=== PATIENT | male | born 1995 | race Caucasian/White ===

== ENCOUNTER 2019-10-27 18:30 | Day surgery (SDC) | payer BC ==
[2019-10-27 13:42] LABS: #Eosinphils 0.1 thou/uL (0.0-0.7); #Lymphocytes 1.9 thou/uL (1.20-3.40); #Monocytes 0.7 thou/uL (0.11-0.59); #Neutrophils 4.3 thou/uL (1.40-6.50); %Basophils 0.5 % (0.0-1.0); %Eosinophils 1.3 % (0.0-10.0); %Lymphocytes 27.1 % (21.0-51.0); %Monocytes 10.6 % (0.0-10.0); %Neutrophils 60.6 % (42.0-75.0); Hemoglobin 14.8 g/dL (14.0-18.0); Mean Corpuscular HGB CONC 33.7 g/dL (32.0-36.0); Mean Corpuscular Hemoglobin 31.4 pg (27.0-31.0); Mean Corpuscular Volume 93.1 fL (78.0-98.0); Mean Platelet Volume 6.4 fL (7.4-10.4); Platelet Count 299 thou/uL (130-400); RBC Distribution Width 11.3 % (11.5-14.5); Red Blood Cell (RBC) Count 4.72 mill/uL (4.70-6.10)
--- NOTE | 2019-10-27 13:49 | RAD ---
XR Chest 1 View Portable HISTORY: Preoperative evaluation COMPARISON: None FINDINGS: The heart size is normal. The lungs are well expanded without focal areas of consolidation, pneumothorax or pleural effusions. IMPRESSION: No radiographic evidence of acute cardiopulmonary process.
[2019-10-27 14:09] LABS: ALT (SGPT) 33 U/L (8-55); AST (SGOT) 21 U/L (5-34); Albumin 4.3 g/dL (3.5-5.0); Alkaline Phosphatase 54 U/L (40-110); Anion Gap 12 mmol/L (10-20); BUN (Urea Nitrogen) 15 mg/dL (8.9-20.6); Calc. Creatinine Clearance 0 mL/min (70-130); Calcium 9.3 mg/dL (7.8-10.44); Carbon Dioxide 27 mmol/L (22-29); Chloride 106 mmol/L (98-107); Estimated GFR-MDRD 87; Glucose 92 mg/dL (70-105); Potassium 3.8 mmol/L (3.5-5.1); Protein, Total 7.3 g/dL (6.0-8.3); Sodium 141 mmol/L (136-145)
[~2019-10-27 18:30] MED LIST: Bacitracin 1 PK ONE; Bupivacaine 0.5% 10 ML VIAL ONE; CEFAZOLIN 1 GM VIAL ONE; Dexamethasone 20 MG/5 ML VIAL ONE; Ketorolac Tromethamine 30 MG/ML VIAL ONE; Lidocaine 1% (PF) 30 ML VIAL ONE; Lidocaine 1% PF 5 ML VIAL ONE; Ondansetron PF 4 MG/2 ML Vial ONE; PROPOFOL 200 MG/20 ML VIAL ONE
[2019-10-27] MEDS ORDERED: Morphine Sulfate 2 MG/ML SYRINGE SLOW IVP PRN (21:56)
[2019-10-27] MEDS ORDERED: Promethazine HCl 25 MG/ML VIAL IM PRN (21:56)
[2019-10-27] MEDS ORDERED: Meperidine HCl/PF 25 MG/ML VIAL SLOW IVP PRN (21:56)
[2019-10-27] MEDS ORDERED: PACU-Morphine 4MG/ML VIAL SLOW IVP PRN (21:56)
[2019-10-27] MEDS ORDERED: HYDROmorphone 2 MG/ML VIAL SLOW IVP PRN (21:56)
[2019-10-27] MEDS ORDERED: Promethazine HCl 25 MG/ML VIAL SLOW IVP PRN (21:56)
[2019-10-27] MEDS ORDERED: Ondansetron HCl/PF 4 MG/2 ML Vial IVP PRN (21:56)
--- NOTE | 2019-10-28 04:33 | OP ---
DATE OF PROCEDURE: 10/27/2019 PREOPERATIVE DIAGNOSIS: Right small finger open wound with partial amputation, exposed bone over 5 mm, proximal one-third of distal phalanx. POSTOPERATIVE DIAGNOSIS: Right small finger open wound with partial amputation, exposed bone over 5 mm, proximal one-third of distal phalanx. PROCEDURES PERFORMED: 1. Bone shortening. 2. Bone debridement. 3. Neurectomy, amputated wound at the bone level. 4. 3 cm wound closure. ANESTHESIA: General with LMA technique by Marshallese Anesthesia augmented by 10 mL of 0.5% Marcaine given to small free metacarpophalangeal joint level prior to initiating surgery. DESCRIPTION OF PROCEDURE: After successful general endotracheal anesthesia, the limb was prepped and draped. The patient then did not have a tourniquet inflated and there was no tourniquet time. We then inspected the edges, found the exposed nerve edges from the amputation and then removed them. We finally also removed the nerve and as we had his neurectomy, debrided with tenotomy scissors, Adson's, a [place] blade as well as a 24-gauge needle the entire wound milieu. Curetting was used until finally we had achieved enough bone resection at the level of the DIP joint. This allowed adequate coverage of the wound from the palmar flap. The post neurectomy wound was then closed with 4-0 nylon in interrupted simple pattern without undue tension and with excellent approximation. The repair was pink and there was no hypersensitivity at this time. Bulky dressing applied with bacitracin, Adaptic, 4 x 4x4, Kerlix, and Coban. He left the operating room without complication. Job ID: [id number]
== END 2019-10-27 23:00 | disposition home or self-care (01) ==
LOC: SDC 18:30 → EDSTATUS 23:20
PROVIDERS: ATTEND Emergency Medicine
PROC: 0X6V0Z3 Detachment at Right Little Finger, Low, Open Approach (ICD-10-PCS; principal; 2019-10-27)
DX: S61.206A Unspecified open wound of right little finger without damage to nail, initial encounter (principal); I10 Essential (primary) hypertension; Z79.899 Other long term (current) drug therapy
CPT/HCPCS: 71045; 80053; 85025; 93005; J0690; J1100; J1885; J2001; J2405; J2704; J3490